=== PATIENT | female | born 1965 | race Caucasian/White ===

== ENCOUNTER 2018-04-25 09:49 | Observation (INO) | payer OTHER ==
[~2018-04-25] VITALS: Ht 165.1 cm; Wt 77.1 kg
[2018-04-25] MEDS ORDERED: MORPHINE SULFATE 2 MG/ML SYR IV STA (10:01)
[2018-04-25] MEDS ORDERED: KETOROLAC TROMETHAMINE 30 MG/ML VIAL IV STA (10:01)
[2018-04-25 10:14] LABS: BASOPHILS # (AUTO) 0.1 (0.0-0.1); BASOPHILS % 0.7 % (0.0-1.0); EOSINOPHILS # (AUTO) 0.3 (0.0-0.4); EOSINOPHILS % 2.5 % (0.0-6.0); HEMATOCRIT 45.9 % (34.2-44.1); HEMOGLOBIN 15.6 g/dL (12.0-16.0); LYMPHOCYTES # (AUTO) 2.3 (1.0-3.2); LYMPHOCYTES % 22.2 % (18.0-39.1); MEAN CORPUSCULAR HEMOGLOBIN 31.1 pg (28-32); MEAN CORPUSCULAR VOLUME 91.4 fL (81-99); MONOCYTES # (AUTO) 0.6 (0.2-0.8); MONOCYTES % 6.1 % (4.4-11.3); NEUTROPHILS % 68.1 % (38.7-80.0); PLATELET COUNT 240 x10e3/uL (140-360); RED BLOOD COUNT 5.02 x10e6/uL (3.6-5.1); RED CELL DISTRIBUTION WIDTH 13.4 % (11.7-14.4)
[2018-04-25] MEDS ORDERED: ONDANSETRON HCL 4 MG ORAL DISINTEGRATING TAB PO ONE (10:15)
[2018-04-25] MEDS ORDERED: SODIUM CHLORIDE 0.9% 1000ML 1,000 ML IV SCH (10:15)
[2018-04-25 10:35] LABS: ALANINE AMINOTRANSFERASE 13 IU/L (0-55); ALBUMIN/GLOBULIN RATIO 1.3 (0.8-2.0); ALKALINE PHOSPHATASE 85 IU/L (40-150); ANION GAP 11.9 mmol/L (8-16); BLOOD UREA NITROGEN 9 mg/dL (7-26); BUN/CREATININE RATIO 10 (6-25); CALCIUM 9.5 mg/dL (8.4-10.2); CARBON DIOXIDE 23 mmol/L (22-29); CHLORIDE 104 mmol/L (98-107); CREATININE, SERUM 0.94 mg/dL (0.57-1.11); EST GLOMERULAR FILTRATION RATE > 60 ML/MIN (60-); GLUCOSE 100 mg/dL (74-118); LIPASE 13 U/L (8-78); POTASSIUM 3.9 mmol/L (3.5-5.1); SODIUM 135 mmol/L (136-145)
[2018-04-25 10:35] LABS: BILIRUBIN,URINE NEGATIVE (NEGATIVE); CLARITY,URINE SL CLOUDY (CLEAR); COLOR,URINE YELLOW (YELLOW); KETONES,URINE NEGATIVE (NEGATIVE); LEUKOCYTE ESTERASE ,URINE 1+ (NEGATIVE); NITRITE,URINE NEGATIVE (NEGATIVE); PROTEIN,URINE DIPSTICK 1+ (NEGATIVE); URINE UROBILINOGEN 0.2 mg/dL (0.2 - 1)
[2018-04-25 10:49] LABS: BACTERIA,URINE MODERATE /HPF; EPITHELIAL CELLS,URINE FEW /LPF
--- NOTE | 2018-04-25 11:22 | Diagnostic Imaging Report ---
PROCEDURE: CT ABDOMEN AND PELVIS WITHOUT CONTRAST COMPARISON:None. INDICATIONS:Right flank pain TECHNIQUE: Stone protocol Volumetric CT abdomen and pelvis. No intravenous or enteric contrast. Multiplanar reformatted images. DLP: 452.39 FINDINGS: Clear lung bases. No pleural effusions. Normal heart size. Liver: Numerous low attenuation cystic nodules, the largest measuring 2.3 cm. Gallbladder: Normal Pancreas: Normal Spleen: Normal Adrenal glands: Normal Urinary bladder: Normal Uterus and adnexa: Hysterectomy Kidneys: Right: 0.7 x 0.4 cm stone at the ureterovesicular junction with accompanying moderate hydronephrosis. At least a right renal stones measuring between 2 mm and 3 mm in diameter. Left: Normal ureter. At least 11 stones measuring between 2 mm and 0.6 x 0.7 cm (image 58, series 3). Bowel: Normal caliber. Peritoneum: Normal Vasculature: Scattered atherosclerosis. Lymph nodes: Normal Skeleton: Intact. Soft tissues: Normal CONCLUSION: 1. 0.7 x 0.4 cm stone at the right ureterovesicular junction with resulting moderate right hydronephrosis. 2. Extensive bilateral nephrolithiasis measuring between 2 mm and 0.6 x 0.7 cm in diameter. 3. Numerous cystic lesions in the liver. These are incompletely characterized on this study. Liver protocol MRI or CT is recommended for further characterization. Dictated by: Nimesh Guadarrama M.D. on 04/25/2018 at 11:25 Electronically approved by: Nimesh Guadarrama M.D. on 04/25/2018 at 11:25
--- OUTSIDE RECORDS SUMMARY | 2018-04-25 11:57 | XMS REPORT ---
Author Author [facility] Address Unknown Phone Unavailable Care Team Providers Care Fruit Or Nut Picker Name Role Phone MASSIMO SAUNDERS Unavailable Unavailable Problems This patient has no known problems. Allergies, Adverse Reactions, Alerts This patient has no known allergies or adverse reactions. Medications This patient has no known medications. Results Test Description Test Time Test Comments Text Results Atomic Results Result Comments CT ABDOMEN/PELVIS WO [place] [address] Patient Name: SILVANA TEIXEIRA MR #: [id number] : 1965 Age/Sex: 52/F Req #: [id number] Adm Physician: Ordered by: MASSIMO SAUNDERS MD Report #: [id number] Location: ER Room/Bed: Procedure: 14 CT/CT ABDOMEN/PELVIS WO Exam Date: 04/25/18 Exam Time: 1050 REPORT STATUS: Signed PROCEDURE: CT ABDOMEN AND PELVIS WITHOUT CONTRAST COMPARISON: None. INDICATIONS: Right flank pain TECHNIQUE: Stone protocol Volumetric CT abdomen and pelvis. No intravenous or enteric contrast. Multiplanar reformatted images. DLP: 452.39 FINDINGS: Clear lung bases. No pleural effusions. Normal heart size. Liver: Numerous low attenuation cystic nodules, the largest measuring 2.3 cm. Gallbladder: Normal Pancreas: Normal Spleen: Normal Adrenal glands: Normal Urinary bladder: Normal Uterus and adnexa: Hysterectomy Kidneys: Right: 0.7 x 0.4 cm stone at the ureterovesicular junction with accompanying moderate hydronephrosis. At least a right renal stones measuring between 2 mm and 3 mm in diameter. Left: Normal ureter. At least 11 stones measuring between 2 mm and 0.6 x 0.7 cm (image 58, series 3). Bowel: Normal caliber. Peritoneum: Normal Vasculature: Scattered atherosclerosis. Lymph nodes: Normal Skeleton: Intact. Soft tissues: Normal CONCLUSION: 1. 0.7 x 0.4 cm stone at the right ureterovesicular junction with resulting moderate right hydronephrosis. 2. Extensive bilateral nephrolithiasis measuring between 2 mm and 0.6 x 0.7 cm in diameter. 3. Numerous cystic lesions in the liver. These are incompletely characterized on this study. Liver protocol MRI or CT is recommended for further characterization. Dictated by: Kathrine Guadarrama M.D. on 02/2018 at 11:25 Electronically approved by: Kathrine Guadarrama M.D. on 04/25/2018 at 11:25 Dictated By: KATHRINE GUADARRAMA MD 1125 Transcribed By: ELROY on 04/25/18 1125 COPY TO: MASSIMO SAUNDERS MD
[2018-04-25] MEDS ORDERED: ONDANSETRON HCL INJ 2 MG/ML VIAL IV PRN (12:00)
[2018-04-25] MEDS: SODIUM CHLORIDE 0.9% 1000ML 1,000 ML IV SCH ×2 (12:50→23:30)
[2018-04-25] MEDS: LEVOFLOXACIN 500MG/D5W 100ML 100 ML IV SCH (12:50)
[2018-04-25 13:18] VITALS: BP 128/75
[2018-04-25 13:26] VITALS: BP 128/75
[2018-04-25] MEDS ORDERED: SYNTHROID112 MCG PO (13:39)
[2018-04-25] MEDS: MORPHINE SULFATE 2 MG/ML SYR IV PRN ×2 (14:03→20:22)
[2018-04-25 16:50] VITALS: BP 109/58
[2018-04-25 20:00] VITALS: BP 135/81
[2018-04-26] VITALS (9 sets, daily range): BP systolic 108–136; BP diastolic 59–82
--- NOTE | 2018-04-26 08:10 | History and Physical ---
This 52-year-old female comes in with abdominal pain, and kidney stone was diagnosed. HISTORY OF PRESENT ILLNESS: Mr. Braun has a history of hypothyroidism, history of back pain and osteoporosis. She was in her usual state of health until she started to have left-sided flank pain, abdominal pain, and also tenderness in the epigastric area. The patient came into the emergency room and was found to have a kidney stone on CT scan and was admitted for pain and a stone in the UV junction. PAST MEDICAL HISTORY 1. History of hypothyroidism. 2. History of back pain. 3. History of vitamin D deficiency. 4. History of osteopenia. SURGICAL HISTORY 1. History of 2 C-sections. 2. Hysterectomy and oophorectomy. 3. Pelvic sling surgery. MEDICATIONS: She takes at home levothyroxine 112 mcg. She sees an adjunct instructor for that. SOCIAL HISTORY: History of smoking 1 pack per day. History of drinking multiple Cokes and also tea. History of no EtOH and no IV drug abuse. REVIEW OF SYSTEMS: Negative for chest pain. Positive for back pain. No nausea, vomiting, or diarrhea. No constipation. No rectal bleeding or hematochezia. Positive for back pain and also epigastric pain. No diplopia. No blurry vision. PHYSICAL EXAMINATION VITALS: Temperature is 96.2, pulse 71, blood pressure 135/81. Pulse oximetry is 95%. HEENT: Normocephalic and atraumatic. The pupils are reacting to light and accommodation. CV: S1 and S2 normal, regular rate and rhythm. ABDOMEN: Tender in the epigastric and left flank pain. EXTREMITIES: No clubbing. No cyanosis. No edema. LABORATORY VALUES: White count 10.22, hemoglobin 15.6, hematocrit 45.9. Chemistries: Sodium 135, potassium 3.9. Urine was positive for RBCs and WBCs, and also specific gravity 1.030. Moderate amount of bacteria. CT scan shows 0.7 x 0.4 stone at right UV junction. Extensive bilateral nephrolithiasis measuring 2 mm, 0.6 and 0.7. Numerous cystic lesions in the liver. ASSESSMENT AND PLAN: Urinary tract infection. We will culture the urine. Continue on Levaquin. Consult with Dr. Pardo has been done. For the liver, the patient is recommended to go for MRI on an outpatient basis with liver protocol. This was addressed to the patient and emphasized to the patient in detail. Further recommendations depend on clinical course and also depending on urine microbiology. I will continue to monitor the patient and continue with medications. Job#: [id number]
[2018-04-26] MEDS: SODIUM CHLORIDE 0.9% 1000ML 1,000 ML IV SCH ×2 (08:43→19:01)
[2018-04-26] MEDS: LEVOFLOXACIN 500MG/D5W 100ML 100 ML IV SCH (08:43)
[2018-04-26] MEDS: LEVOTHYROXINE SODIUM 112 MCG TAB PO SCH (08:43)
--- NOTE | 2018-04-26 09:00 | Consultation ---
DATE OF CONSULTATION: April 26, 2018 UROLOGY CONSULTATION REASON FOR CONSULTATION: Obstructing ureterolithiasis. HISTORY OF PRESENT ILLNESS: Ember Braun is a 52-year-old woman with recurrent urinary stones. The patient has passed 3 stones in the past. She has never seen a urologist. The patient reports both stress and urge-type urinary incontinence. She has had a "bladder sling" placed by a content analyst in [place], [place]. The patient has had recurrent urinary tract infections. She has never seen any hematuria. She denies any current dysuria. The patient had severe right-sided flank pain as well as nausea without any vomiting. She reported to the emergency room and was evaluated. I instructed the emergency room to order a urine culture as well as a urinalysis. She was admitted and placed on an antibiotic. She has not had any fever. Her pain has been controlled, but she has not passed her stone yet. Her urine has been strained by the nurses. PAST MEDICAL AND SURGICAL HISTORY 1. 2, para 2 by section times 2. 2. Status post total abdominal hysterectomy. 3. Status post oophorectomy. 4. Status post exploration for scar tissue by a content analyst. 5. Status post urethral sling. 6. [place] thyroiditis. CURRENT MEDICATIONS: Please refer to the MAR. ALLERGIES: BUPROPION, HYDROCODONE AND NITROFURANTOIN. SOCIAL HISTORY: The patient smokes. She denies ethanol or drug use. The patient works in an office. She has supportive family at the bedside. FAMILY HISTORY: Significant for kidney stones as well as bladder cancer in the patient's father. Otherwise, noncontributory to the active urological problems. REVIEW OF SYSTEMS: As discussed above in the history of present illness and past medical history, otherwise negative for all systems. PHYSICAL EXAMINATION GENERAL: A healthy-appearing, 52-year-old woman lying in bed in no apparent distress. VITAL SIGNS: She is currently afebrile, and the vital signs are currently stable. ABDOMEN: Soft, nondistended and nontender without costovertebral angle tenderness. Kidneys are not palpable without hepatosplenomegaly. No obvious evidence of hernia at the present time. LABORATORY STUDIES: White blood cell count is 10,220, hemoglobin 15.6, platelets 240,000. The patient's sodium is slightly low at 135. Her creatinine is normal at 0.94. Urinalysis is significant for 11-20 RBCs, 6-10 WBCs, a few epithelial cells and moderate bacteria. No urine culture is pending at the present time. CT scan of the abdomen and pelvis was performed and revealed at least 11 stones in the left kidney measuring up to 0.7 cm. In the right kidney, there are 2 small stones, 2 and 3 mm, but there is a 0.7 x 0.4 cm stone at the right ureterovesical junction with hydroureteronephrosis. A 3rd dimension was not measured on that study. There are numerous cystic lesions that were noted in the liver, and I defer that to the admitting physician. ASSESSMENT 1. Right renal colic. 2. Right ureterolithiasis. 3. Bilateral nephrolithiasis. 4. Mixed-type urinary incontinence. 5. Urinary tract infections. 6. Nausea. 7. Family history of breast cancer. 8. Family history of kidney stones. 9. Smoker. 10. Mild hyponatremia. 11. Right hydroureteronephrosis due to stone. PLAN 1. I will order a KUB. 2. Stone passage trial. 3. If she fails to the pass the stone, we will go to the operating room for a ureteroscopy and laser. Thank you very much for involving us in the care of your patient. We will be happy to follow her along with you, as well as an outpatient. Job#: [id number]
--- NOTE | 2018-04-26 11:57 | Diagnostic Imaging Report ---
PROCEDURE:X-RAY ABDOMEN - KUB COMPARISON:[facility], CT, CT ABDOMEN/PELVIS WO, 04/25/2018, 11:03. INDICATIONS:KIDNEY STONES FINDINGS: There is a non-obstructed bowel-gas pattern. Multiple 1-2 mm calcific densities project in the upper, mid, and lower right renal shadow, some of which are grouped, consistent with nonobstructing calculi. A 0.5-0.6 cm nonobstructing calculus projects in the superior pole of the right renal shadow. Grouped 1-2 mm calcific densities project in the superior to mid left renal shadow. 0.6 cm oval-shaped calcific density projects in the medial aspect of the right pelvis. Pelvic phleboliths. No acute bony abnormalities. CONCLUSION: 1. Multiple 1-2 mm nonobstructing calculi, some of which are grouped and a 0.5-0.6 cm nonobstructing calculus in the right kidney, corresponding to the findings on CT. 2. Grouped 1-2 mm nonobstructing calculi in the superior to mid left kidney. 3. 0.6 cm oval-shaped calcific density projecting in the medial aspect of the right pelvis may correspond to the previously visualized obstructing distal right ureteral calculus on CT. Kirk Stubbs M.D. Dictated by: Kirk Stubbs M.D. on 04/26/2018 at 12:00 Electronically approved by: Kirk Stubbs M.D. on 04/26/2018 at 12:00
[2018-04-27] VITALS (8 sets, daily range): BP systolic 104–125; BP diastolic 56–74
[2018-04-27] MEDS: SODIUM CHLORIDE 0.9% 1000ML 1,000 ML IV SCH ×2 (04:19→13:58)
[2018-04-27] MEDS: LEVOTHYROXINE SODIUM 112 MCG TAB PO SCH (06:04)
[2018-04-27] MEDS ORDERED: BELLADONNA/OPIUM 30 MG SUPP RC ONE (06:37)
[2018-04-27] MEDS ORDERED: IOPAMIDOL 610MG/1ML 300 MG/ML VIAL IV ONE (06:37)
[2018-04-27] MEDS: LEVOFLOXACIN 500MG/D5W 100ML 100 ML IV SCH (09:00)
[2018-04-27] MEDS ORDERED: LIDOCAINE HCL 2% LOCAL INJ 5 ML SDV VIAL INJ ONE (18:11)
[2018-04-27] MEDS ORDERED: PROPOFOL IV EMULSION 10 MG/ML 50 ML VIAL ONE (18:11)
[2018-04-27] MEDS ORDERED: DEXAMETHASONE SOD PHOS INJ 4 MG/ML VIAL ONE (18:16)
[2018-04-27] MEDS ORDERED: SEVOFLURANE INHAL SOLN 250 ML PEN BTL ONE (18:16)
[2018-04-27] MEDS ORDERED: ONDANSETRON HCL INJ 2 MG/ML VIAL ONE (18:16)
[2018-04-27] MEDS ORDERED: FENTANYL CITRATE/PF 100MCG/2 ML INJ ONE (18:31)
[2018-04-27] MEDS ORDERED: MIDAZOLAM HCL 2 MG/2 ML VIAL ONE (18:31)
[2018-04-27] MEDS: MORPHINE SULFATE 2 MG/ML SYR IV PRN (21:12)
[2018-04-28] VITALS: BP 109/58
[2018-04-28] MEDS: SODIUM CHLORIDE 0.9% 1000ML 1,000 ML IV SCH (03:27)
[2018-04-28 04:00] VITALS: BP 122/63
[2018-04-28 05:53] LABS: BASOPHILS % 0.3 % (0.0-1.0); EOSINOPHILS % 0.6 % (0.0-6.0); HEMATOCRIT 36.7 % (34.2-44.1); HEMOGLOBIN 12.6 g/dL (12.0-16.0); LYMPHOCYTES # (AUTO) 2.3 (1.0-3.2); LYMPHOCYTES % 23.9 % (18.0-39.1); MEAN CORPUSCULAR HEMOGLOBIN 31.8 pg (28-32); MEAN CORPUSCULAR HGB CONC 34.3 g/dL (31-35); MEAN CORPUSCULAR VOLUME 92.7 fL (81-99); NEUTROPHILS # (AUTO) 6.5 (2.1-6.9); NEUTROPHILS % 66.7 % (38.7-80.0); PLATELET COUNT 179 x10e3/uL (140-360); RED BLOOD COUNT 3.96 x10e6/uL (3.6-5.1); RED CELL DISTRIBUTION WIDTH 13.6 % (11.7-14.4)
[2018-04-28 05:54] LABS: EOSINOPHILS # (AUTO) 0.1 (0.0-0.4); MONOCYTES # (AUTO) 0.8 (0.2-0.8)
[2018-04-28] MEDS: LEVOTHYROXINE SODIUM 112 MCG TAB PO SCH (06:15)
[2018-04-28 06:34] LABS: POTASSIUM 3.9 mmol/L (3.5-5.1); SODIUM 140 mmol/L (136-145)
[2018-04-28 06:35] LABS: ANION GAP 10.9 mmol/L (8-16); BLOOD UREA NITROGEN 8 mg/dL (7-26); BUN/CREATININE RATIO 10 (6-25); CALCIUM 8.6 mg/dL (8.4-10.2); CARBON DIOXIDE 23 mmol/L (22-29); CHLORIDE 110 mmol/L (98-107); EST GLOMERULAR FILTRATION RATE > 60 ML/MIN (60-); GLUCOSE 97 mg/dL (74-118)
[2018-04-28 07:33] VITALS: BP 121/79
[2018-04-28 08:00] VITALS: BP 121/79
[2018-04-28] MEDS ORDERED: ULTRAM 50MG50 MG PO (08:01)
[2018-04-28] MEDS ORDERED: DETROL LA4 MG PO (08:02)
[2018-04-28] MEDS ORDERED: LEVAQUIN500 MG PO (08:03)
--- NOTE | 2018-05-15 15:44 | Discharge Summary ---
Patient came with urethral stone. A consult with Dr. Jose Pardo was done. Patient was scheduled for stent. IV fluids were started. Patient has hemoconcentration secondary to COPD. Smoking cessation was advised. Albuterol and Atrovent treatments were given. Patient was also on Levaquin at the time. Patient was given also Zofran as needed and morphine sulfate for pain control. KUB was done, which showed a stone. The patient was feeling better. Stent was done and patient colic was better. Patient was sent home on p.o. antibiotics and also pain medication by Dr. Jose Pardo. FINAL DIAGNOSES: 1. Urinary tract infection. 2. Nephrolithiasis, status post urinary stent. 3. Renal colic. 4. History of chronic obstructive pulmonary disease. 5. History of smoking. The patient is to be followed up with Dr. Pardo in about a week's time. For further information, look in the chart and for medicines on discharge, look in the medical reconciliation sheet. PROCEDURE DONE: Bilateral ureteroscopy and also stent. MAGGIE CHISHOLM MD Job#: [id number]
--- NOTE | 2018-07-04 03:07 | Operative Report ---
DATE OF PROCEDURE: PREOPERATIVE DIAGNOSES 1. Right ureterolithiasis. 2. Left ureterolithiasis. 3. Urinary tract infections . 4. Hydronephrosis. POSTOPERATIVE DIAGNOSES 1. Right ureterolithiasis. 2. Left ureterolithiasis. 3. Urinary tract infections . 4. Hydronephrosis. 5. Grade-1 cystocele. 6. Grade-1 rectocele. 7. Atrophic (senile) vaginitis. OPERATIONS PERFORMED 1. Cystourethroscopy with bilateral ureteral catheterization and retrograde ureterography (separate procedure performed to evaluate the upper tracts in light of the urinary tract infection, hydronephrosis). 2. Interpretation of retrograde ureteropyelography. 3. Supervision of fluoroscopy. No radiologist present. 4. Bilateral ureteroscopy with holmium laser lithotripsy and insertion of stents (separate procedure performed for the bilateral ureterolithiasis). 5. Radiological services for supervision and interpretation of ureteroscopy. ANESTHESIA: General. COMPLICATIONS: None. CLINICAL SUMMARY: Please refer to consultation from earlier this hospitalization. Patient is aware of the risks of bleeding, infection, injury to adjacent structures, and the definite need for additional procedures. She understood all these risks and elected to proceed. OPERATIVE PROCEDURE IN DETAIL: Informed consent was verified. Ember Crume was properly identified, taken to operating room, placed on the cystoscopy table in supine position. Anesthesia was uneventfully begun. The patient was then carefully and gently repositioned in the dorsal lithotomy position with all pressure points well padded. Her genitalia were prepared and draped in the usual sterile fashion. A 22.5-[place] cystoscope sheath with obturator in place was atraumatically inserted in patient's urethra and the bladder was drained. Panendoscopy of urinary bladder revealed no suspicious mucosal lesion, no tumors, no stones, no diverticula. Normally positioned and configured ureteral orifices were identified. Ureteral catheter was used to cannulate each ureter and retrograde ureteropyelography was performed. A guidewire was then placed into the left ureter and guided to level of patient's kidney. Semirigid ureteroscope was then placed alongside the guidewire until we atraumatically reached the patient's ureteral stone that was obstructing. Holmium laser lithotripsy was performed in order to pulverize the stone into multiple smaller fragments. A basket was then utilized to extract the largest of stones atraumatically. With cystoscopic fluoroscopic guidance, an indwelling ureteral stent was then placed. It was coiled in patient's kidney, as well as patient's bladder. The retaining suture was cut short. An identical procedure with identical results was performed on the contralateral side. Interpretation of retrograde ureterography: Contrast was instilled in a retrograde fashion bilaterally. There was bilateral hydroureteronephrosis. Bilateral ureteral stones were identified as filling defects. At the end of the procedure, both stents were in well position, coiled in the patient's kidney, as well as patient's bladder at the end of the case. The patient's bladder was then drained. Cystoscope was withdrawn. Pelvic examination under anesthesia revealed a grade-1 cystocele with grade-1 rectocele. There was atrophic (senile) vaginitis. No abnormal palpable pelvic masses could be appreciated. There were no suspicious mucosal lesions. The patient was then uneventfully reversed from anesthesia and taken to recovery room in stable condition. There was no complication to this procedure. She tolerated the procedure well. Plans will be to ensure the patient does well overnight and following that, she hopefully will be discharged postoperative day 1 with followup as an outpatient for her next stone surgery, which will involve bilateral ureteroscopy, as well as stent removal. Job#: [id number] CQ
== END 2018-04-28 08:45 | disposition home or self-care (01) ==
LOC: ER 09:49 → ERHOLD 11:54 → MED/SURG3 12:54
PROVIDERS: ADMIT Family Medicine; ATTEND Family Medicine
DX: N13.6 Pyonephrosis (principal); N20.1 Calculus of ureter; E03.9 Hypothyroidism, unspecified; Z87.891 Personal history of nicotine dependence; E55.9 Vitamin D deficiency, unspecified; Z87.442 Personal history of urinary calculi; N39.46 Mixed incontinence; Z80.3 Family history of malignant neoplasm of breast; Z84.1 Family history of disorders of kidney and ureter; E87.1 Hypo-osmolality and hyponatremia
CPT/HCPCS: 36415 ×2; 52356; 74018; 74176; 74420; 80048; 80053; 81001; 83690; 83970; 84550; 85025 ×2; 87086; 88300; 93005; 96361 ×3; 99284; C2617; G0378 ×4; J1100; J1885; J1956 ×3; J2001; J2250; J2270 ×2; J2405 ×2; J7030 ×4; Q9967

== ENCOUNTER 2018-05-17 16:38 | Observation (INO) | payer OTHER ==
[~2018-05-17] VITALS: Ht 165.1 cm; Wt 74.4 kg
[~2018-05-17 16:38] MED LIST: DETROL LA4 MG PO; LEVAQUIN500 MG PO; SYNTHROID112 MCG PO; ULTRAM 50MG50 MG PO
[2018-05-17 17:02] LABS: BASOPHILS # (AUTO) 0.1 (0.0-0.1); BASOPHILS % 0.5 % (0.0-1.0); EOSINOPHILS # (AUTO) 0.2 (0.0-0.4); EOSINOPHILS % 2.5 % (0.0-6.0); HEMATOCRIT 47.6 % (34.2-44.1); HEMOGLOBIN 16.5 g/dL (12.0-16.0); LYMPHOCYTES # (AUTO) 3.3 (1.0-3.2); LYMPHOCYTES % 34.1 % (18.0-39.1); MEAN CORPUSCULAR HEMOGLOBIN 31.5 pg (28-32); MEAN CORPUSCULAR HGB CONC 34.7 g/dL (31-35); MONOCYTES # (AUTO) 0.8 (0.2-0.8); MONOCYTES % 7.8 % (4.4-11.3); NEUTROPHILS # (AUTO) 5.3 (2.1-6.9); NEUTROPHILS % 54.9 % (38.7-80.0); PLATELET COUNT 292 x10e3/uL (140-360); RED BLOOD COUNT 5.23 x10e6/uL (3.6-5.1); RED CELL DISTRIBUTION WIDTH 13.8 % (11.7-14.4)
[2018-05-17 17:27] LABS: BLOOD UREA NITROGEN 8 mg/dL (7-26); BUN/CREATININE RATIO 9 (6-25); CALCIUM 9.8 mg/dL (8.4-10.2); CARBON DIOXIDE 22 mmol/L (22-29); CHLORIDE 105 mmol/L (98-107); CREATININE, SERUM 0.85 mg/dL (0.57-1.11); EST GLOMERULAR FILTRATION RATE > 60 ML/MIN (60-); GLUCOSE 87 mg/dL (74-118); SODIUM 138 mmol/L (136-145)
[2018-05-17 17:30] LABS: BILIRUBIN,URINE NEGATIVE (NEGATIVE); CLARITY,URINE SL CLOUDY (CLEAR); COLOR,URINE YELLOW (YELLOW); KETONES,URINE NEGATIVE (NEGATIVE); LEUKOCYTE ESTERASE ,URINE TRACE (NEGATIVE); NITRITE,URINE NEGATIVE (NEGATIVE); PROTEIN,URINE DIPSTICK NEGATIVE (NEGATIVE); URINE UROBILINOGEN 0.2 mg/dL (0.2 - 1)
[2018-05-17] MEDS ORDERED: MORPHINE SULFATE 2 MG/ML SYR IV STA (17:31)
[2018-05-17] MEDS ORDERED: ONDANSETRON HCL INJ 2 MG/ML VIAL IV STA (17:31)
[2018-05-17 17:43] LABS: BACTERIA,URINE MODERATE /HPF; EPITHELIAL CELLS,URINE FEW /LPF; RBC,URINE 0-5 /HPF (0-5)
[2018-05-17] MEDS ORDERED: SODIUM CHLORIDE 0.9% 1000ML 1,000 ML IV SCH (17:45)
--- NOTE | 2018-05-17 17:58 | Diagnostic Imaging Report ---
Exam: Abdominal film Clinical History: Left flank pain Comparison: KUB 04/26/2018 DISCUSSION: Frontal view of the abdomen shows a nonobstructive bowel gas pattern with mild amount of retained stool.There are no dilated, air-filled loops of bowel. Bilateral internal ureteral stents are again identified. No interval change in the 6-7, 3-4 mm and punctate nonobstructing calculi projecting over the left renal shadow. No interval change in the ill-defined 2 mm nonobstructing calculi projecting over the right renal shadow. No radiopaque densities project over the expected course of the ureters. Pelvic phleboliths. No acute bone abnormality. IMPRESSION: 1. Bilateral internal ureteral stents in place. 2. No interval change in bilateral nonobstructing calculi The staff physician below has personally reviewed this exam on the date of dictation. Signed by: Dr. Kirk Stubbs M.D. on 05/17/2018 5:54 PM
[2018-05-17] MEDS: SODIUM CHLORIDE 0.9% 1000ML 1,000 ML IV SCH (18:14)
[2018-05-17] MEDS ORDERED: ONDANSETRON HCL INJ 2 MG/ML VIAL IV PRN (18:15)
[2018-05-17] MEDS ORDERED: MORPHINE SULFATE 2 MG/ML SYR IV PRN (18:15)
[2018-05-17 19:21] LABS: BILIRUBIN,URINE NEGATIVE (NEGATIVE); CLARITY,URINE SL CLOUDY (CLEAR); COLOR,URINE YELLOW (YELLOW); KETONES,URINE NEGATIVE (NEGATIVE); LEUKOCYTE ESTERASE ,URINE TRACE (NEGATIVE); NITRITE,URINE NEGATIVE (NEGATIVE); PROTEIN,URINE DIPSTICK NEGATIVE (NEGATIVE); URINE UROBILINOGEN 0.2 mg/dL (0.2 - 1)
[2018-05-17 19:29] LABS: BACTERIA,URINE MODERATE /HPF; RBC,URINE 0-5 /HPF (0-5); WBC,URINE (MAN) 0-5 /HPF (0-5)
[2018-05-17 20:00] VITALS: BP 121/75
[2018-05-17] MEDS: CEFTRIAXONE SOD 1 GM VIAL IV SCH (20:27)
[2018-05-18] VITALS (8 sets, daily range): BP systolic 107–116; BP diastolic 61–83
[2018-05-18] MEDS: SODIUM CHLORIDE 0.9% 1000ML 1,000 ML IV SCH ×3 (01:33→18:39)
[2018-05-18] MEDS: CEFTRIAXONE SOD 1 GM VIAL IV SCH (06:48)
--- NOTE | 2018-05-18 07:43 | History and Physical ---
This 52-year-old female comes in with abdominal pain. HISTORY OF PRESENT ILLNESS: Ms. Ember Braun was recently admitted to the hospital for nephrolithiasis, status post stents. She was in her usual state of health until the day prior to admission when the patient started with sharp pain, which was localized to the left flank. The patient experienced the pain at 6/10 to 8/10 in intensity. She came to the emergency room and was admitted for nephrolithiasis. PAST MEDICAL HISTORY 1. History of polycystic kidney disease. 2. History of thyroid disease. 3. History of COPD. 4. History of urinary calculi in the past. SURGICAL HISTORY 1. Hysterectomy and oophorectomy. 2. Bilateral ureteral stents 3 weeks ago. MEDICATIONS 1. She was taking Levaquin prior to this. 2. Levothyroxine 112 mcg. 3. Detrol 4 mg. 4. Tramadol 50 mg q.4 h. for pain. SOCIAL HISTORY: Current smoker. Smokes about a pack per day. Lives with spouse. REVIEW OF SYSTEMS: Negative for chest pain or shortness of breath. No nausea, vomiting, diarrhea. No constipation. No rectal bleeding. Positive for abdominal pain. Positive for flank pain. No diplopia. No blurry vision. No chest pain. PHYSICAL EXAMINATION GENERAL: The patient is alert and oriented times 3. The pain is well controlled at this time. The patient is getting morphine 2 mg/mL and Zofran. She is also on Rocephin 1 g. VITAL SIGNS: Temperature is 95.7, pulse 68, respirations 20, blood pressure 116/83, pulse ox 95%. HEENT: Normocephalic and atraumatic. The pupils are reacting to light and accommodation. CV: S1 and S2 normal, regular rate and rhythm. ABDOMEN: Nontender. Left flank pain, possible costochondral tenderness. EXTREMITIES: No clubbing, no cyanosis, no edema. LABORATORY VALUES: Sodium 138, potassium 4.0, BUN 18, creatinine 0.85. Hematology: White count 9.6, hemoglobin 16.5, hematocrit 47.6. Urine: Cloudy. Moderate amount of bacteria. Cultures have been sent. ASSESSMENT AND PLAN: Nephrolithiasis. Probable urinary tract infection. The patient is on Rocephin. To be taken to the OR by Dr. Jose Pardo. We will continue hydrating the patient. Also, O2 by nasal cannula. Further recommendations per clinical course. We will continue to monitor the patient and follow the patient along with Dr. Pardo and follow the cultures. Job#: [id number] GHAZALA
[2018-05-18] MEDS ORDERED: MEROPENEM 1GM 100 ML IV SCH (09:45)
[2018-05-18] MEDS: MEROPENEM 1 GM VIAL IV SCH (10:18)
[2018-05-18] MEDS: FLUCONAZOLE 100 MG TAB PO SCH (10:18)
[2018-05-18] MEDS: GENTAMICIN 80MG/NS 100 ML 100 ML IV SCH (11:48)
[2018-05-19 00:10] VITALS: BP 110/64
[2018-05-19] MEDS: MEROPENEM 1 GM VIAL IV SCH ×2 (00:52→09:28)
[2018-05-19] MEDS: GENTAMICIN 80MG/NS 100 ML 100 ML IV SCH ×3 (00:52→14:56)
[2018-05-19 00:53] VITALS: BP 110/61
[2018-05-19] MEDS: SODIUM CHLORIDE 0.9% 1000ML 1,000 ML IV SCH ×2 (02:06→09:28)
[2018-05-19 05:10] VITALS: BP 126/70
[2018-05-19 05:23] LABS: BASOPHILS # (AUTO) 0.1 (0.0-0.1); BASOPHILS % 0.7 % (0.0-1.0); EOSINOPHILS # (AUTO) 0.1 (0.0-0.4); EOSINOPHILS % 2.1 % (0.0-6.0); HEMATOCRIT 43.1 % (34.2-44.1); HEMOGLOBIN 14.2 g/dL (12.0-16.0); LYMPHOCYTES # (AUTO) 2.5 (1.0-3.2); MEAN CORPUSCULAR HEMOGLOBIN 31.7 pg (28-32); MEAN CORPUSCULAR HGB CONC 32.9 g/dL (31-35); MEAN CORPUSCULAR VOLUME 96.2 fL (81-99); MONOCYTES # (AUTO) 0.5 (0.2-0.8); MONOCYTES % 7.5 % (4.4-11.3); NEUTROPHILS # (AUTO) 3.6 (2.1-6.9); NEUTROPHILS % 52.4 % (38.7-80.0); PLATELET COUNT 233 x10e3/uL (140-360); RED BLOOD COUNT 4.48 x10e6/uL (3.6-5.1); RED CELL DISTRIBUTION WIDTH 14.2 % (11.7-14.4)
[2018-05-19 05:41] LABS: ANION GAP 10.2 mmol/L (8-16); BLOOD UREA NITROGEN 5 mg/dL (7-26); BUN/CREATININE RATIO 6 (6-25); CALCIUM 8.7 mg/dL (8.4-10.2); CARBON DIOXIDE 24 mmol/L (22-29); CHLORIDE 114 mmol/L (98-107); CREATININE, SERUM 0.81 mg/dL (0.57-1.11); EST GLOMERULAR FILTRATION RATE > 60 ML/MIN (60-); GLUCOSE 92 mg/dL (74-118); POTASSIUM 4.2 mmol/L (3.5-5.1); SODIUM 144 mmol/L (136-145)
[2018-05-19] MEDS ORDERED: IOPAMIDOL 610MG/1ML 300 MG/ML VIAL IV ONE (05:45)
[2018-05-19] MEDS ORDERED: BELLADONNA/OPIUM 30 MG SUPP RC ONE (05:45)
[2018-05-19 08:21] VITALS: BP 112/59
[2018-05-19] MEDS: FLUCONAZOLE 100 MG TAB PO SCH (09:28)
[2018-05-19] MEDS: PHENAZOPYRIDINE HCL 100 MG TAB PO SCH ×2 (09:28→14:55)
[2018-05-19 11:16] VITALS: BP 121/64
[2018-05-19 15:13] VITALS: BP 104/64
[2018-05-19] MEDS ORDERED: SEVOFLURANE INHAL SOLN 250 ML PEN BTL ONE (15:22)
[2018-05-19] MEDS ORDERED: LIDOCAINE HCL 2% LOCAL INJ 5 ML SDV VIAL INJ ONE (15:22)
[2018-05-19] MEDS ORDERED: ONDANSETRON HCL INJ 2 MG/ML VIAL ONE (15:22)
[2018-05-19] MEDS ORDERED: PROPOFOL IV EMULSION 10 MG/ML 20 ML VIAL ONE (15:22)
[2018-05-19] MEDS ORDERED: DEXAMETHASONE SOD PHOS INJ 4 MG/ML VIAL ONE (15:22)
[2018-05-19] MEDS ORDERED: KETOROLAC TROMETHAMINE 30 MG/ML VIAL ONE (15:22)
[2018-05-19] MEDS ORDERED: ROCURONIUM BROMIDE 10 MG/ML 5ML VIAL ONE (15:22)
[2018-05-19] MEDS ORDERED: FENTANYL CITRATE/PF 100MCG/2 ML INJ ONE (15:46)
[2018-05-19] MEDS ORDERED: MIDAZOLAM HCL 2 MG/2 ML VIAL ONE (15:46)
--- NOTE | 2018-06-21 20:38 | Discharge Summary ---
This patient came in with abdominal pain. The patient had stents put in by Dr. Pardo and a cystoscopy was done and bilateral stents were removed, and the patient felt better and the patient was taking Levaquin for antibiotics and stents were removed. The patient was feeling better and the patient was discharged home. FINAL DIAGNOSES 1. Nephrolithiasis. 2. Bilateral renal stents. PROCEDURE: Cystoscopy with bilateral stent removal by Dr. Jose Pardo. The patient is discharged home on Levaquin. Further recommendations as an outpatient. The patient will be followed up by urology and primary care physician at [facility]. The patient also has history of smoking and smoking cessation was advised and also history of hypothyroidism for which she was continued on levothyroxine for. MAGGIE CHISHOLM MD Job#: [id number]
--- NOTE | 2018-07-21 01:08 | Operative Report ---
DATE OF PROCEDURE: May 19, 2018 PREOPERATIVE DIAGNOSES 1. Right nephrolithiasis. 2. Left nephrolithiasis. 3. Foreign bodies (bilateral indwelling ureteral stents). POSTOPERATIVE DIAGNOSES 1. Right nephrolithiasis. 2. Left nephrolithiasis. 3. Foreign bodies (bilateral indwelling ureteral stents). 4. Candidal vaginitis. 5. Mild cystocele. OPERATIONS PERFORMED 1. Cystourethroscopy with complicated removal of bilateral indwelling ureteral stents (separate procedure performed for diagnosis of stents done with a separate scope). 2. Bilateral ureteroscopy with Holmium laser lithotripsy and extraction of stones (separate procedure performed for diagnosis of stone done with separate scope). 3. Radiological services for supervision of interpretation of ureteroscopy. 4. Interpretation of retrograde ureteropyelography. 5. Supervision of fluoroscopy. No radiologist present. 6. Pelvic examination under anesthesia. ANESTHESIA: General. COMPLICATIONS: None. CLINICAL SUMMARY: Please refer to the chart. Ember Braun was admitted by the emergency room due to pain from the bilateral stents. She was brought to operating room to remove her stent and evaluate and manage any residual stones. She is aware of the risks of bleeding, infection, injury to adjacent structures, need for additional procedures, and elected to proceed. OPERATIVE PROCEDURE IN DETAIL: Informed consent was verified. Ember Braun was properly identified, taken to the operating room, placed on the cystoscopy table in supine position. Anesthesia was uneventfully begun. The patient was then carefully and gently repositioned in the dorsal lithotomy position with all pressure points well padded. Her genitalia were prepared and draped in usual sterile fashion. A 22.5-Portuguese cystoscope sheath with the obturator in place was atraumatically inserted into patient's urethra and the bladder was drained. Panendoscopy of the urinary bladder revealed no suspicious gross lesions, no tumors, no stones, and no diverticula. The stents were emerging from both ureteral orifices and were looped together. A guidewire was then placed into the right ureter and guided below the patient's kidney. The right stent was coiled, pulled out through the meatus. It was re-grasped and discarded. Semirigid ureteroscope was then placed alongside the guidewire and guided into the distal ureter. No stone was identified. A secondary guidewire was left in place. The flexible ureteroscope was then brought over the guidewire and guided to level of patient's kidney. We identified the stones. Holmium laser lithotripsy was then performed. The stone was pulverized in smaller pieces. We then utilized a Nitinol basket to extract stone fragments atraumatically. Careful panendoscopy of the intrarenal collecting system at the end of the procedures on it revealed only fine sand remaining, which should be passable. No significantly sized stone was identified. An identical procedure and maneuver was performed on left-hand side with identical results. Stones were as well, fragments were removed. No significantly sized stones remained. Interpretation of retrograde ureteropyelography: Contrast was instilled in retrograde fashion via the ureteroscope. There was chronic fullness bilaterally. There was chronic bilateral hydroureteronephrosis, which we attributed to accept the stent, but nevertheless at the end of the case, there was unobstructed drainage draining fluoroscopically and at the end of the case, I could not appreciate any stone on radiographic studies. The patient's bladder was drained. The cystoscope was withdrawn. Pelvic examination under anesthesia revealed candidal vaginitis with a whitish discharge and a mild cystocele. No abnormal palpable pelvic masses could be appreciated. There were no obvious mucosal lesions. The patient was then uneventfully reversed from anesthesia and taken to recovery room in stable condition. There were no complications to the procedure. She tolerated the procedure well. Explicit postoperative instructions were given and ongoing urological followup is a must. Job#: [id number] CQ
== END 2018-05-19 16:35 | disposition home or self-care (01) ==
LOC: ER 16:38 → ERHOLD 18:17 → IMCU 19:44
PROVIDERS: ADMIT Family Medicine; ATTEND Family Medicine
DX: N20.0 Calculus of kidney (principal); Z87.442 Personal history of urinary calculi; J44.9 Chronic obstructive pulmonary disease, unspecified; Q61.3 Polycystic kidney, unspecified; N39.0 Urinary tract infection, site not specified; B37.3 Candidiasis of vulva and vagina; Z96.0 Presence of urogenital implants; N81.10 Cystocele, unspecified
CPT/HCPCS: 36415 ×2; 52353; 74018; 74420; 80048 ×2; 81001; 85025 ×2; 87086; 88300; 99284; G0378 ×3; J0696 ×2; J1100; J1580 ×2; J1885; J2001; J2185 ×2; J2250; J2270; J2405 ×2; J7030 ×3; Q9967

== ENCOUNTER → 2019-01-17 | Outpatient (CLI) | payer BC ==
--- NOTE | 2019-01-17 17:07 | Diagnostic Imaging Report ---
EXAMINATION: CT of the abdomen and pelvis without contrast. TECHNIQUE: Spiral CT images of the abdomen and pelvis were performed from the lung bases to the lesser trochanters. No intravenous contrast was given per renal stone protocol. Coronal and sagittal reformatted images were obtained. COMPARISON: Retrograde hilar gram 05/19/2018 CLINICAL HISTORY:Renal stones DISCUSSION: ABSENCE OF INTRAVENOUS CONTRAST DECREASES SENSITIVITY FOR DETECTION OF FOCAL LESIONS AND VASCULAR PATHOLOGY. ABDOMEN/PELVIS: LOWER THORAX: Unremarkable. HEPATOBILIARY:Multiple low-attenuation lesions scattered throughout the liver, the largest of which measures 2.4 cm in segment 8. All of the larger lesions have average internal attenuation less than 20 Hounsfield units. Smaller lesions are too small to further characterize. Gallbladder unremarkable. SPLEEN: No splenomegaly. PANCREAS: No focal masses or ductal dilatation. ADRENALS: No adrenal nodules. KIDNEYS/URETERS: 2.4 cm exophytic cyst interpolar left kidney. Additional subcentimeter hypoattenuating lesions bilaterally, too small to further characterize. Multiple bilateral renal calculi. The largest on the left measures 6 mm. The largest on the right measures 5 mm. No hydronephrosis. No ureteral or bladder calculi. Multiple pelvic phleboliths. PELVIC ORGANS/BLADDER: Urinary bladder is unremarkable. Uterus is not identified and has presumably been removed. PERITONEUM/RETROPERITONEUM: No free air or fluid. LYMPH NODES: No intra-abdominal,retroperitoneal, pelvic or inguinal lymphadenopathy. VESSELS: Limited evaluation without intravenous contrast. Atherosclerotic calcification of the abdominal aorta without aneurysmal dilatation. GI TRACT: Large bowel shows no distention or wall thickening. Gas and fecal material noted throughout. The appendix is not definitively identified. No right lower quadrant inflammation. Small bowel is nondilated. Stomach is collapsed with prominence of the rugal folds. BONES AND SOFT TISSUES: No osseous destructive lesions. No focal soft tissue abnormalities. IMPRESSION: Bilateral nonobstructing renal calculi measuring up to 6 mm on the left and 5 mm on the right. Left renal and hepatic cysts. Atherosclerotic vascular disease. Signed by: Dr. Juan Andre M.D. on 01/17/2019 5:03 PM
== END ==
LOC: CT 16:25
PROVIDERS: ATTEND Urology
DX: N20.0 Calculus of kidney (principal)
CPT/HCPCS: 74176

== ENCOUNTER → 2019-07-10 | Outpatient (CLI) | payer BC ==
--- NOTE | 2019-07-10 10:40 | Diagnostic Imaging Report ---
Abdomen, 1 view. History: Right flank pain, stones. Comparison: CT abdomen 01/17/2019. Findings: Multiple small calcifications are again seen projected over both kidneys, largest on the left measuring 6 mm. Multiple calcified phleboliths are present within the pelvis bilaterally. Air is scattered throughout nondilated small and large bowel. There are no masses. The osseous structures are intact. IMPRESSION: Multiple bilateral renal calculi, grossly similar in appearance compared to prior CT. Signed by: Joseph Villafana on 07/10/2019 10:37 AM
--- NOTE | 2019-07-10 10:52 | Diagnostic Imaging Report ---
Renal ultrasound, 07/10/2019. History: Renal stones. Comparison: X-ray from today and CT abdomen 01/17/2019. Discussion: Transverse and longitudinal images of the kidneys were obtained demonstrating normal renal sizes and echogenicities. An oval anechoic structure is present in the upper pole of the left kidney measuring 2.6 x 2.3 x 3.1 cm. There is no evidence of hydronephrosis or mass. Scattered subcentimeter nonshadowing echogenic foci are present within both kidneys, difficult to reliably identify. The right kidney measures 11 cm and the left kidney measures 11.9 cm in length. The urinary bladder is unremarkable. Bilateral ureteral jets are identified. There is no evidence of free fluid. IMPRESSION: 1. Simple left renal cyst. 2. Nonobstructing bilateral renal calculi. Signed by: Joseph Villafana on 07/10/2019 10:49 AM
== END ==
LOC: US 08:38
PROVIDERS: ATTEND Urology
DX: N20.0 Calculus of kidney (principal)
CPT/HCPCS: 74018; 76770

== ENCOUNTER 2019-08-03 10:48 | Emergency (ER) | payer BC ==
[~2019-08-03] VITALS: Ht 165.1 cm; Wt 74.4 kg
[2019-08-03] MEDS ORDERED: SODIUM CHLORIDE 0.9% 1000ML 1,000 ML IV STA (10:55)
[2019-08-03] MEDS ORDERED: KETOROLAC TROMETHAMINE 30 MG/ML VIAL IV NR (11:00)
[2019-08-03] MEDS ORDERED: ONDANSETRON HCL INJ 2MG/ML 2ML 2 MG/ML VIAL IV NR (11:30)
--- NOTE | 2019-08-03 11:31 | NUR ---
straight cath inserted for ua via aseptic technique per md orders; urine output approx 40 cc; ua collected and sent to lab
[2019-08-03 11:48] LABS: BASOPHILS # (AUTO) 0.1 (0.0-0.1); BASOPHILS % 0.4 % (0.0-1.0); EOSINOPHILS # (AUTO) 0.2 (0.0-0.4); EOSINOPHILS % 1.3 % (0.0-6.0); HEMATOCRIT 44.7 % (34.2-44.1); HEMOGLOBIN 14.7 g/dL (12.0-16.0); LYMPHOCYTES # (AUTO) 3.1 (1.0-3.2); LYMPHOCYTES % 26.5 % (18.0-39.1); MEAN CORPUSCULAR HEMOGLOBIN 31.3 pg (28-32); MEAN CORPUSCULAR HGB CONC 32.9 g/dL (31-35); MEAN CORPUSCULAR VOLUME 95.1 fL (81-99); MONOCYTES # (AUTO) 0.7 (0.2-0.8); MONOCYTES % 5.7 % (4.4-11.3); NEUTROPHILS # (AUTO) 7.7 (2.1-6.9); NEUTROPHILS % 65.8 % (38.7-80.0); PLATELET COUNT 259 x10e3/uL (140-360); RED CELL DISTRIBUTION WIDTH 14.2 % (11.7-14.4)
[2019-08-03 11:49] LABS: BILIRUBIN,URINE NEGATIVE (NEGATIVE); CLARITY,URINE CLEAR (CLEAR); COLOR,URINE YELLOW (YELLOW); KETONES,URINE NEGATIVE (NEGATIVE); LEUKOCYTE ESTERASE ,URINE TRACE (NEGATIVE); NITRITE,URINE NEGATIVE (NEGATIVE); PROTEIN,URINE DIPSTICK NEGATIVE (NEGATIVE); URINE UROBILINOGEN 0.2 mg/dL (0.2 - 1)
[2019-08-03 11:58] LABS: BACTERIA,URINE RARE /HPF; EPITHELIAL CELLS,URINE FEW /LPF; RBC,URINE 0-5 /HPF (0-5); WBC,URINE (MAN) 0-5 /HPF (0-5)
[2019-08-03 12:09] LABS: ALANINE AMINOTRANSFERASE 16 IU/L (0-55); ALBUMIN 3.8 g/dL (3.5-5.0); ALBUMIN/GLOBULIN RATIO 1.2 (0.8-2.0); ALKALINE PHOSPHATASE 72 IU/L (40-150); ANION GAP 11.4 mmol/L (8-16); BLOOD UREA NITROGEN 7 mg/dL (7-26); BUN/CREATININE RATIO 8 (6-25); CALCIUM 9.3 mg/dL (8.4-10.2); CARBON DIOXIDE 28 mmol/L (22-29); CHLORIDE 101 mmol/L (98-107); CREATININE, SERUM 0.84 mg/dL (0.57-1.11); EST GLOMERULAR FILTRATION RATE > 60 ML/MIN (60-); GLUCOSE 93 mg/dL (74-118); POTASSIUM 3.4 mmol/L (3.5-5.1); SODIUM 137 mmol/L (136-145)
--- NOTE | 2019-08-03 14:21 | Diagnostic Imaging Report ---
EXAM: CT Abdomen and Pelvis WITHOUT intravenous contrast INDICATION: Left abdominal/flank pain COMPARISON: CT abdomen and pelvis of 01/17/2019 TECHNIQUE: Abdomen and pelvis were scanned utilizing a multidetector helical scanner from the lung base to the pubic symphysis without administration of IV contrast. Coronal and sagittal reformations were obtained. IV CONTRAST: None ORAL CONTRAST: Water COMPLICATIONS: None RADIATION DOSE: Total DLP: 315.5 mGy*cm Dose modulation, iterative reconstruction, and/or weight based adjustment of the mA/kV was utilized to reduce the radiation dose to as low as reasonably achievable. FINDINGS: LOWER THORAX: Bibasilar dependent subsegmental atelectasis. No focal consolidation. HEPATOBILIARY: Multiple hepatic cysts, essentially unchanged from the CT of 01/17/2019. No new focal liver lesions. Normal gallbladder. SPLEEN: No splenomegaly. PANCREAS: No focal masses or ductal dilatation. ADRENALS: No adrenal nodules. KIDNEYS/URETERS: Redemonstration of bilateral nonobstructing renal calculi, the largest of which measure up to 8 mm on the left and 6 mm on the right. No hydronephrosis or hydroureter. Unchanged 2.4 cm left exophytic renal cyst. PELVIC ORGANS/BLADDER: Unremarkable. PERITONEUM / RETROPERITONEUM: No free air or fluid. LYMPH NODES: No lymphadenopathy. VESSELS: Atherosclerotic calcifications of the nonaneurysmal abdominal aorta and major branches. GI TRACT: No abnormal bowel wall thickening. No bowel obstruction. BONES AND SOFT TISSUES: No acute osseous injury. No suspicious lytic or blastic lesions. IMPRESSION: Redemonstration of bilateral nonobstructing renal calculi measuring up to 8 mm on the left and 6 mm on the right. No hydronephrosis or hydroureter. Signed by: Odilon Alford MD on 08/03/2019 1:34 PM
[2019-08-03 14:42] VITALS: BP 113/80
== END 2019-08-03 14:51 | disposition home or self-care (01) ==
LOC: ER 10:48
DX: M54.5 Low back pain (principal); R10.9 Unspecified abdominal pain; R11.0 Nausea; E06.3 Autoimmune thyroiditis; E28.2 Polycystic ovarian syndrome
CPT/HCPCS: 36415; 74176; 80053; 81001; 85025; 87086; 99284; J1885; J2405; J7030

== ENCOUNTER → 2019-09-01 | Day surgery (SDC) | payer BC ==
--- NOTE | 2019-08-31 11:40 | Diagnostic Imaging Report ---
Abdomen, 1 view. History: Preop, urologic procedure. Comparison: 07/10/2019. Findings: Air is scattered throughout nondilated small and large bowel. Multiple calcifications are projected over the kidneys bilaterally, measuring up to 5 mm on the right and 7 cm on the left. Calcified phleboliths are present within the pelvis. The osseous structures are intact. IMPRESSION: Non-specific bowel gas pattern. Bilateral renal calculi without significant change. Signed by: Joseph Villafana on 08/31/2019 11:36 AM
--- NOTE | 2019-08-31 11:41 | Diagnostic Imaging Report ---
Chest, 2 views, 08/31/2019. History: Preop, urologic procedure. Comparison: None available. Findings: The cardiomediastinal silhouette and pulmonary vasculature are within normal limits. The lungs are clear without evidence of consolidation or pleural effusion. Azygos fissure is noted. There are no acute osseous or soft tissue abnormalities. Impression: No acute cardiopulmonary abnormality. Signed by: Joseph Villafana on 08/31/2019 11:37 AM
[2019-08-31 11:49] LABS: BASOPHILS # (AUTO) 0.1 (0.0-0.1); BASOPHILS % 0.7 % (0.0-1.0); EOSINOPHILS # (AUTO) 0.2 (0.0-0.4); EOSINOPHILS % 1.7 % (0.0-6.0); HEMATOCRIT 45.8 % (34.2-44.1); HEMOGLOBIN 15.1 g/dL (12.0-16.0); LYMPHOCYTES # (AUTO) 3.1 (1.0-3.2); LYMPHOCYTES % 30.8 % (18.0-39.1); MEAN CORPUSCULAR HEMOGLOBIN 31.3 pg (28-32); MONOCYTES # (AUTO) 0.7 (0.2-0.8); MONOCYTES % 6.6 % (4.4-11.3); NEUTROPHILS # (AUTO) 6.1 (2.1-6.9); PLATELET COUNT 250 x10e3/uL (140-360); RED BLOOD COUNT 4.82 x10e6/uL (3.6-5.1); RED CELL DISTRIBUTION WIDTH 13.5 % (11.7-14.4)
[2019-08-31 12:16] LABS: ALANINE AMINOTRANSFERASE 15 IU/L (0-55); ALBUMIN 3.9 g/dL (3.5-5.0); ALBUMIN/GLOBULIN RATIO 1.2 (0.8-2.0); ALKALINE PHOSPHATASE 69 IU/L (40-150); ANION GAP 10.3 mmol/L (8-16); BLOOD UREA NITROGEN 10 mg/dL (7-26); BUN/CREATININE RATIO 12 (6-25); CALCIUM 9.4 mg/dL (8.4-10.2); CARBON DIOXIDE 27 mmol/L (22-29); CHLORIDE 103 mmol/L (98-107); CREATININE, SERUM 0.84 mg/dL (0.57-1.11); EST GLOMERULAR FILTRATION RATE > 60 ML/MIN (60-); GLUCOSE 87 mg/dL (74-118); POTASSIUM 4.3 mmol/L (3.5-5.1); SODIUM 136 mmol/L (136-145)
[~2019-09-01] MED LIST changes: +B&O 60MG R/S 60 MG SUPP PR ONE; +CEFTRIAXONE SOD 1 GM/NS 50 ML 50 ML IV ONE; +DEXAMETHASONE SOD PHOS INJ 4 MG/ML VIAL ONE; +FENTANYL CITRATE/PF 100MCG/2 ML INJ ONE; +FOLIC ACID1 MG PO; +IOPAMIDOL 300MG/ML 50ML INFUS..BTL IV ONE; +LEVOTHYROXINE PO; +LIDOCAINE HCL 2% LOCAL INJ 5 ML SDV VIAL INJ ONE; +MAGNESIUM OXID400 MG PO; +MIDAZOLAM HCL 2 MG/2 ML VIAL ONE; +ONDANSETRON HCL INJ 2MG/ML 2ML 2 MG/ML VIAL ONE; +PROPOFOL IV EMULSION 10 MG/ML 20 ML VIAL ONE; +SEVOFLURANE INHAL SOLN 250 ML PEN BTL ONE; +SYNTHROID100 MCG PO; +VIT B12 INJ; +VIT B12 PO; +VIT D3 PO; +VITAMIN B-121000 MC2 SL
[2019-09-01 14:20] VITALS: BP 134/81
--- NOTE | 2019-11-06 00:59 | Operative Report ---
DATE OF PROCEDURE: 09/01/2019 SURGEON: Jose Pardo MD POSTOPERATIVE DIAGNOSES: 1. Left nephrolithiasis. 2. Urinary tract infections. POSTOPERATIVE DIAGNOSES: 1. Left nephrolithiasis. 2. Urinary tract infections. 3. Grade 1 cystocele. 4. Atrophic (senile) vaginitis. OPERATIONS PERFORMED: Note these were all staged procedures as part of multi-staged and multi-step process in managing the patient's urolithiasis. 1. Left-sided extracorporeal shockwave lithotripsy (separate procedure performed for the nephrolithiasis). 2. Cystourethroscopy with bilateral ureteral catheterization and retrograde ureteropyelography (separate procedure performed for the urinary tract infection). 3. Interpretation of retrograde ureteropyelography. 4. Supervision of fluoroscopy, no radiologist present. 5. Pelvic examination under anesthesia. ANESTHESIA: General. COMPLICATIONS: None. CLINICAL SUMMARY: Ember Braun is a 53-year-old woman with bilateral nephrolithiasis. She has had a previous excision of a vaginal sling. She is brought for the above procedure. She is aware of the risks of bleeding, infection, injury to adjacent structures, need for additional procedures and elected to proceed. OPERATIVE PROCEDURE IN DETAIL: Informed consent was verified. Ember Braun was properly identified, taken to the operating room, placed on the lithotripsy table in supine position. Anesthesia was uneventfully begun. The patient's left nephrolithiasis was localized with biplanar fluoroscopy. A total of 3000 shocks were delivered to the 8 as well as 5 mm stones in the left upper kidney. Fragmentation was noted. The patient was then carefully and gently repositioned in dorsal lithotomy position with all pressure points well padded. Her genitalia were prepared and draped in usual sterile fashion. The cystoscope sheath with obturator in place was atraumatically inserted in the patient's urethra and bladder was drained. Panendoscopy revealed no suspicious mucosal lesions, no tumors, no stones, and no diverticula. Normally positioned and configured ureteral orifices were identified. An 8-Kazakh catheter was used to cannulate each ureter and retrograde ureteropyelography pyelogram was performed. Interpretation of retrograde ureteropyelography: Contrast was instilled in retrograde fashion bilaterally. There were filling defects in the left upper kidney corresponding to the known stones as well as blood clots from the stone management with lithotripsy. We identified stone in the right side as well. Bilaterally, there was no hydronephrosis. Unobstructed drainage was observed fluoroscopically. The patient's bladder was drained. Cystoscope was withdrawn. Pelvic examination under anesthesia revealed no evidence of side effects or problems from the sling excision. There was a grade 1 cystocele. There was atrophic vaginitis. No abnormal palpable pelvic masses could be appreciated. There were no obvious mucosal lesions. The patient was then uneventfully reversed from anesthesia and taken to recovery room in stable condition. There were no complications to the procedure. The patient tolerated the procedure well. Plans will be to return the patient to the operating room for right, and if any residual stone present, possibly left ESWL. Jose Pardo MD [place]/MODL /[id number] cc: Lupillo Ramirez MD
== END | disposition home or self-care (01) ==
LOC: OR 09:35
PROVIDERS: ATTEND Urology
DX: N20.0 Calculus of kidney (principal); N39.0 Urinary tract infection, site not specified; N81.10 Cystocele, unspecified; N95.2 Postmenopausal atrophic vaginitis; E06.3 Autoimmune thyroiditis; J44.9 Chronic obstructive pulmonary disease, unspecified; E03.9 Hypothyroidism, unspecified; K76.89 Other specified diseases of liver; R20.0 Anesthesia of skin; F17.210 Nicotine dependence, cigarettes, uncomplicated; Z88.6 Allergy status to analgesic agent; Z88.1 Allergy status to other antibiotic agents; Z88.8 Allergy status to other drugs, medicaments and biological substances; Z01.810 Encounter for preprocedural cardiovascular examination; Z01.812 Encounter for preprocedural laboratory examination; Z01.818 Encounter for other preprocedural examination
CPT/HCPCS: 36415; 50590; 71046; 74018; 80053; 83970; 84550; 85025; 93005; C1758; J0696; J1100; J2001; J2250; J2405; J2704; J3010; Q9967

== ENCOUNTER → 2019-11-10 | Day surgery (SDC) | payer BC ==
[2019-11-09 14:49] LABS: BASOPHILS # (AUTO) 0.1 (0.0-0.1); BASOPHILS % 0.8 % (0.0-1.0); EOSINOPHILS # (AUTO) 0.2 (0.0-0.4); EOSINOPHILS % 2.2 % (0.0-6.0); HEMATOCRIT 44.6 % (34.2-44.1); LYMPHOCYTES # (AUTO) 3.2 (1.0-3.2); LYMPHOCYTES % 34.7 % (18.0-39.1); MEAN CORPUSCULAR HEMOGLOBIN 31.7 pg (28-32); MEAN CORPUSCULAR HGB CONC 33.6 g/dL (31-35); MEAN CORPUSCULAR VOLUME 94.3 fL (81-99); MONOCYTES # (AUTO) 0.7 (0.2-0.8); MONOCYTES % 7.7 % (4.4-11.3); NEUTROPHILS % 54.5 % (38.7-80.0); PLATELET COUNT 267 x10e3/uL (140-360); RED BLOOD COUNT 4.73 x10e6/uL (3.6-5.1); RED CELL DISTRIBUTION WIDTH 13.8 % (11.7-14.4)
--- NOTE | 2019-11-09 15:19 | Diagnostic Imaging Report ---
Exam: KUB - 2 views Indication: Renal calculi, preoperative Comparison: KUB of 10/13/2019 Findings: Unchanged right and left renal calculi measure up to 5 mm on the left and 4 mm on the right. Nonobstructive bowel gas pattern. No free air. No acute osseous injury. Phleboliths in the pelvis. Impression: Unchanged bilateral renal calculi. Signed by: Odilon Alford MD on 11/09/2019 3:15 PM
[~2019-11-10] MED LIST changes: -B&O 60MG R/S 60 MG SUPP PR ONE; -IOPAMIDOL 300MG/ML 50ML INFUS..BTL IV ONE; +MORPHINE SULFATE INJ 4 MG/ML INJ 1ML ONE
[2019-11-10 09:13] VITALS: BP 145/83
--- NOTE | 2019-12-27 03:16 | Operative Report ---
DATE OF PROCEDURE: 11/10/2019 SURGEON: Jose Pardo MD PREOPERATIVE DIAGNOSIS: Right nephrolithiasis. POSTOPERATIVE DIAGNOSIS: Right nephrolithiasis. OPERATION PERFORMED: 1. Staged right-sided extracorporeal shockwave lithotripsy. 2. Supervision of fluoroscopy, no radiologist present. ANESTHESIA: General. COMPLICATIONS: None. CLINICAL SUMMARY: Ember Braun is a 54-year-old woman with urolithiasis. She is brought for the staged procedure with hopes of ridding her urolithiasis. She is aware of the risks of bleeding, infection, injury to adjacent structures, need for additional procedures and elected to proceed. OPERATIVE PROCEDURE IN DETAIL: After informed consent was verified. Ember Braun was properly identified, taken to the operating room, placed on the lithotripsy table in supine position. Anesthesia was uneventfully begun. The patient's 5 mm upper calyceal stone and 5 mm lower calyceal stones were localized with biplanar fluoroscopy. A total of 3000 shocks were delivered with excellent fragmentation noted. The patient was then uneventfully reversed from anesthesia and taken to the recovery room in stable condition. There were no complications to the procedure and she tolerated the procedure well. Explicit postop instructions were given. We will follow the patient up in the office. Jose Pardo MD [place]/MODL /[id number] cc: MD Jose Nunez MD
== END | disposition home or self-care (01) ==
LOC: OR 05:22
PROVIDERS: ATTEND Urology
DX: N20.0 Calculus of kidney (principal); Z01.812 Encounter for preprocedural laboratory examination; E03.9 Hypothyroidism, unspecified; Z87.442 Personal history of urinary calculi; Z87.440 Personal history of urinary (tract) infections; J44.9 Chronic obstructive pulmonary disease, unspecified; F41.9 Anxiety disorder, unspecified; F17.200 Nicotine dependence, unspecified, uncomplicated; K21.9 Gastro-esophageal reflux disease without esophagitis; Z88.5 Allergy status to narcotic agent; Z88.8 Allergy status to other drugs, medicaments and biological substances
CPT/HCPCS: 36415; 50590; 74018; 85025; J0696; J1100; J2001; J2250; J2270; J2405; J2704; J3010

== ENCOUNTER → 2024-06-21 | Day surgery (SDC) | payer BC ==
[2024-06-16 15:30] LABS: BASOPHILS # (AUTO) 0.1 (0.0-0.1); BASOPHILS % 0.8 % (0.0-1.0); EOSINOPHILS # (AUTO) 0.3 (0.0-0.4); EOSINOPHILS % 2.7 % (0.0-6.0); HEMATOCRIT 48.8 % (34.2-44.1); HEMOGLOBIN 16.1 g/dL (12.0-16.0); LYMPHOCYTES % 30.5 % (18.0-39.1); MONOCYTES # (AUTO) 0.7 (0.2-0.8); MONOCYTES % 7.4 % (4.4-11.3); NEUTROPHILS # (AUTO) 5.7 (2.1-6.9); NEUTROPHILS % 58.5 % (38.7-80.0); PLATELET COUNT 334 x10e3/uL (140-360); RED BLOOD COUNT 5.19 x10e6/uL (3.6-5.1); RED CELL DISTRIBUTION WIDTH 13.2 % (11.7-14.4); WHITE BLOOD COUNT 9.73 x10e3/uL (4.8-10.8)
[2024-06-16 16:03] LABS: ANION GAP 16.6 mmol/L (8-16); CALCIUM 9.4 mg/dL (8.4-10.2); CREATININE, SERUM 1.09 mg/dL (0.57-1.11); POTASSIUM 3.6 mmol/L (3.5-5.1)
[2024-06-17 05:14] LABS: CALCIUM 9.6 mg/dL (8.7-10.2)
[~2024-06-21] MED LIST changes: +CEFDINIR300 MG PO; -CEFTRIAXONE SOD 1 GM/NS 50 ML 50 ML IV ONE; +DEXAMETHASONE SOD PHOS INJ 4 MG/ML SDV ONE; -DEXAMETHASONE SOD PHOS INJ 4 MG/ML VIAL ONE; +ESTRACE42.5 GM TOP; +ESTRADIOL1 MG TOP; +FLUCONAZOLE100 MG PO; +IOPAMIDOL 610MG/1ML 300 MG/ML VIAL IV ONE; +KETOROLAC TROMETHAMINE 30 MG/ML VIAL ONE; +MAGNESIUM400 MG PO; -MIDAZOLAM HCL 2 MG/2 ML VIAL ONE; -MORPHINE SULFATE INJ 4 MG/ML INJ 1ML ONE; +TIROSINT200 MCG PO; +VESICARE5 MG PO; +VITAMIN D3125 MCG; +VITAMIN D3125 MCG/1 PO
[2024-06-21] MEDS: LACTATED RINGER'S 1,000 ML ONE (06:07)
[2024-06-21] MEDS: GENTAMICIN 80MG/NS 100 ML 200 ML IV ONE (06:08)
[2024-06-21] MEDS: CEFTRIAXONE 1 GM VIAL ONE (06:08)
[2024-06-21 09:38] VITALS: TEMP 97.8
[2024-06-21] MEDS: MEPERIDINE HCL INJ 25 MG/ML VIAL ONE (09:58)
[2024-06-21] MEDS: ONDANSETRON HCL INJ 2MG/ML 2ML 2 MG/ML VIAL ONE (10:03)
[2024-06-21] MEDS: FENTANYL CITRATE/PF 100MCG/2 ML INJ ONE (10:08)
[2024-06-21] MEDS: HYDROMORPHONE 1MG/1ML INJ ONE (10:30)
[2024-06-21] MEDS: PHENAZOPYRIDINE HCL 100 MG TAB ONE (10:33)
[2024-06-21 11:00] VITALS: BP 130/71; PULSE 74; RESP 18; O2SAT 99
== END | disposition home or self-care (01) ==
LOC: OR 06:13
PROVIDERS: ATTEND Urology
DX: N20.0 Calculus of kidney (principal); Z46.6 Encounter for fitting and adjustment of urinary device; N81.10 Cystocele, unspecified; N81.6 Rectocele; N39.46 Mixed incontinence; N95.2 Postmenopausal atrophic vaginitis; N81.89 Other female genital prolapse; N32.81 Overactive bladder; N28.1 Cyst of kidney, acquired; N39.0 Urinary tract infection, site not specified; E78.5 Hyperlipidemia, unspecified; J44.9 Chronic obstructive pulmonary disease, unspecified; E03.9 Hypothyroidism, unspecified; K58.9 Irritable bowel syndrome, unspecified; F17.290 Nicotine dependence, other tobacco product, uncomplicated; Z88.6 Allergy status to analgesic agent; Z88.1 Allergy status to other antibiotic agents; Z88.8 Allergy status to other drugs, medicaments and biological substances; Z01.810 Encounter for preprocedural cardiovascular examination; Z01.812 Encounter for preprocedural laboratory examination; Z79.899 Other long term (current) drug therapy; Z80.52 Family history of malignant neoplasm of bladder; Z84.1 Family history of disorders of kidney and ureter
CPT/HCPCS: 36415; 52332; 52352; 74420; 80048; 83970; 84550; 85025; 87086; 88300; 93005; C1758; C1766; C2617; J0696; J1100; J1170; J1580; J1885; J2001; J2175; J2405; J2704; J3010; J7121; Q9967

== ENCOUNTER → 2024-07-19 | Day surgery (SDC) | payer BC ==
[2024-07-18 11:00] LABS: BASOPHILS # (AUTO) 0.1 (0.0-0.1); BASOPHILS % 0.6 % (0.0-1.0); EOSINOPHILS # (AUTO) 0.3 (0.0-0.4); EOSINOPHILS % 2.7 % (0.0-6.0); HEMATOCRIT 46.8 % (34.2-44.1); HEMOGLOBIN 15.3 g/dL (12.0-16.0); LYMPHOCYTES # (AUTO) 2.5 (1.0-3.2); LYMPHOCYTES % 25.7 % (18.0-39.1); MEAN CORPUSCULAR HEMOGLOBIN 30.8 pg (28-32); MEAN CORPUSCULAR HGB CONC 32.7 g/dL (31-35); MEAN CORPUSCULAR VOLUME 94.2 fL (81-99); MONOCYTES # (AUTO) 0.7 (0.2-0.8); MONOCYTES % 7.1 % (4.4-11.3); NEUTROPHILS # (AUTO) 6.2 (2.1-6.9); NEUTROPHILS % 63.7 % (38.7-80.0); PLATELET COUNT 303 x10e3/uL (140-360); RED BLOOD COUNT 4.97 x10e6/uL (3.6-5.1); RED CELL DISTRIBUTION WIDTH 13.6 % (11.7-14.4); WHITE BLOOD COUNT 9.71 x10e3/uL (4.8-10.8)
[2024-07-18 12:34] LABS: ANION GAP 14.9 mmol/L (8-16); CALCIUM 9.1 mg/dL (8.4-10.2); CREATININE, SERUM 0.86 mg/dL (0.57-1.11); POTASSIUM 3.9 mmol/L (3.5-5.1)
[~2024-07-19] MED LIST changes: +ACETAMINOPHEN 1000 MG/100 ML IV ONE; -KETOROLAC TROMETHAMINE 30 MG/ML VIAL ONE; +PHENYLEPHRINE HCL 1% 10 MG/ML VIAL ONE
[2024-07-19] MEDS: LACTATED RINGER'S 1,000 ML ONE (06:12)
[2024-07-19] MEDS: CEFTRIAXONE 1 GM VIAL ONE (06:13)
[2024-07-19] MEDS: GENTAMICIN 80MG/NS 100 ML 200 ML IV ONE (06:13)
[2024-07-19] MEDS: PHENAZOPYRIDINE HCL 100 MG TAB ONE (10:10)
[2024-07-19] MEDS: KETOROLAC TROMETHAMINE 30 MG/ML VIAL ONE (10:10)
[2024-07-19] MEDS: MEPERIDINE HCL INJ 25 MG/ML VIAL ONE (10:20)
[2024-07-19 10:50] VITALS: BP 135/89; PULSE 86; RESP 16; O2SAT 96
== END | disposition home or self-care (01) ==
LOC: OR 05:56
PROVIDERS: ATTEND Urology
DX: N20.0 Calculus of kidney (principal); Z46.6 Encounter for fitting and adjustment of urinary device; N81.10 Cystocele, unspecified; N81.6 Rectocele; N95.2 Postmenopausal atrophic vaginitis; N28.89 Other specified disorders of kidney and ureter; J44.9 Chronic obstructive pulmonary disease, unspecified; E03.9 Hypothyroidism, unspecified; Z88.6 Allergy status to analgesic agent; Z88.1 Allergy status to other antibiotic agents; Z88.8 Allergy status to other drugs, medicaments and biological substances; Z01.812 Encounter for preprocedural laboratory examination; Z01.818 Encounter for other preprocedural examination; Z79.899 Other long term (current) drug therapy; Z87.891 Personal history of nicotine dependence
CPT/HCPCS: 36415; 52352; 74018; 74420; 80048; 84550; 85025; 87086; 88300; C1766; C1769; J0131; J0696; J1100; J1580; J1885; J2001; J2175; J2371; J2405; J2704; J3010; J7121; Q9967

== ENCOUNTER → 2025-01-04 | Outpatient (REF) | payer BC ==
[~2025-01-04] MED LIST changes: +ABX PO; -ACETAMINOPHEN 1000 MG/100 ML IV ONE; +CEFTIN PO; -DEXAMETHASONE SOD PHOS INJ 4 MG/ML SDV ONE; +ESTRADIOL PATCH TD; -FENTANYL CITRATE/PF 100MCG/2 ML INJ ONE; -IOPAMIDOL 610MG/1ML 300 MG/ML VIAL IV ONE; +LEVOTHYROXINE50 MCG PO; -LIDOCAINE HCL 2% LOCAL INJ 5 ML SDV VIAL INJ ONE; -ONDANSETRON HCL INJ 2MG/ML 2ML 2 MG/ML VIAL ONE; -PHENYLEPHRINE HCL 1% 10 MG/ML VIAL ONE; -PROPOFOL IV EMULSION 10 MG/ML 20 ML VIAL ONE; -SEVOFLURANE INHAL SOLN 250 ML PEN BTL ONE; +ULTRAM50 MG PO; +VIT D PO
== END ==
LOC: CT 13:36
PROVIDERS: ATTEND Urology
DX: N20.0 Calculus of kidney (principal)
CPT/HCPCS: 74176

== ENCOUNTER → 2025-02-16 | Day surgery (SDC) | payer BC ==
[2025-02-15 13:27] LABS: BASOPHILS # (AUTO) 0.1 (0.0-0.1); BASOPHILS % 0.8 % (0.0-1.0); EOSINOPHILS # (AUTO) 0.2 (0.0-0.4); EOSINOPHILS % 1.9 % (0.0-6.0); HEMATOCRIT 43.5 % (34.2-44.1); HEMOGLOBIN 14.8 g/dL (12.0-16.0); LYMPHOCYTES # (AUTO) 2.8 (1.0-3.2); LYMPHOCYTES % 31.1 % (18.0-39.1); MEAN CORPUSCULAR HEMOGLOBIN 31.3 pg (28-32); MONOCYTES # (AUTO) 0.7 (0.2-0.8); MONOCYTES % 7.3 % (4.4-11.3); NEUTROPHILS # (AUTO) 5.2 (2.1-6.9); NEUTROPHILS % 58.7 % (38.7-80.0); PLATELET COUNT 314 x10e3/uL (140-360); RED BLOOD COUNT 4.73 x10e6/uL (3.6-5.1); RED CELL DISTRIBUTION WIDTH 13.6 % (11.7-14.4); WHITE BLOOD COUNT 8.85 x10e3/uL (4.8-10.8)
[2025-02-15 13:51] LABS: ANION GAP 11.5 mmol/L (8-16); CALCIUM 8.7 mg/dL (8.4-10.2); CREATININE, SERUM 0.87 mg/dL (0.57-1.11); POTASSIUM 3.5 mmol/L (3.5-5.1); URIC ACID 4.6 mg/dL (2.6-8.0)
[~2025-02-16] MED LIST changes: +ACETAMINOPHEN 1000 MG/100 ML 100 ML IV ONE; +DEXAMETHASONE SOD PHOS INJ 4 MG/ML SDV ONE; +FENTANYL CITRATE/PF 100MCG/2 ML INJ ONE; +LIDOCAINE HCL 2% LOCAL INJ 5 ML SDV VIAL INJ ONE; +ONDANSETRON HCL INJ 2MG/ML 2ML 2 MG/ML VIAL ONE; +PROPOFOL IV EMULSION 10 MG/ML 20 ML VIAL ONE; +SCOPOLAMINE 1 MG PATCH ONE; +SEVOFLURANE INHAL SOLN 250 ML PEN BTL ONE; -VITAMIN D3125 MCG; +VITAMIN D3125 MCG PO
[2025-02-16] MEDS: SODIUM CHLORIDE 0.9% 1000ML 1,000 ML ONE (08:18)
[2025-02-16] MEDS: CEFTRIAXONE 1 GM VIAL ONE (08:19)
[2025-02-16 11:01] VITALS: TEMP 97.7
[2025-02-16] MEDS: PHENAZOPYRIDINE HCL 100 MG TAB ONE (11:27)
[2025-02-16 12:10] VITALS: BP 149/84; PULSE 63; RESP 18; O2SAT 99
== END | disposition home or self-care (01) ==
LOC: OR 07:53
PROVIDERS: ATTEND Urology
DX: N20.0 Calculus of kidney (principal); N39.0 Urinary tract infection, site not specified; N81.10 Cystocele, unspecified; N81.6 Rectocele; N95.2 Postmenopausal atrophic vaginitis; N32.89 Other specified disorders of bladder; J44.9 Chronic obstructive pulmonary disease, unspecified; E78.5 Hyperlipidemia, unspecified; E03.9 Hypothyroidism, unspecified; K29.70 Gastritis, unspecified, without bleeding; N28.1 Cyst of kidney, acquired; K76.89 Other specified diseases of liver; K86.2 Cyst of pancreas; J98.4 Other disorders of lung; M19.90 Unspecified osteoarthritis, unspecified site; M06.9 Rheumatoid arthritis, unspecified; F41.9 Anxiety disorder, unspecified; Z88.6 Allergy status to analgesic agent; Z88.8 Allergy status to other drugs, medicaments and biological substances; Z88.1 Allergy status to other antibiotic agents; Z01.810 Encounter for preprocedural cardiovascular examination; Z01.812 Encounter for preprocedural laboratory examination; Z01.818 Encounter for other preprocedural examination; Z79.899 Other long term (current) drug therapy; Z87.891 Personal history of nicotine dependence
CPT/HCPCS: 36415; 50590; 52332; 71046; 74018; 80048; 83970; 84550; 85025; 87086; 87186; 93005; C1758; C1769; C2617; J0131; J0696; J1100; J2003; J2405; J2704; J3010; J7030

== ENCOUNTER → 2025-04-11 | Day surgery (SDC) | payer BC ==
[2025-04-06 13:30] LABS: BASOPHILS # (AUTO) 0.1 (0.0-0.1); BASOPHILS % 0.8 % (0.0-1.0); EOSINOPHILS # (AUTO) 0.2 (0.0-0.4); EOSINOPHILS % 2.1 % (0.0-6.0); HEMATOCRIT 43.7 % (34.2-44.1); HEMOGLOBIN 14.5 g/dL (12.0-16.0); LYMPHOCYTES % 34.3 % (18.0-39.1); MEAN CORPUSCULAR HEMOGLOBIN 30.9 pg (28-32); MEAN CORPUSCULAR HGB CONC 33.2 g/dL (31-35); MONOCYTES # (AUTO) 0.6 (0.2-0.8); MONOCYTES % 7.5 % (4.4-11.3); NEUTROPHILS # (AUTO) 4.7 (2.1-6.9); NEUTROPHILS % 55.2 % (38.7-80.0); PLATELET COUNT 318 x10e3/uL (140-360); RED CELL DISTRIBUTION WIDTH 13.4 % (11.7-14.4); WHITE BLOOD COUNT 8.59 x10e3/uL (4.8-10.8)
[2025-04-06 14:05] LABS: ANION GAP 14.9 mmol/L (8-16); CALCIUM 9.3 mg/dL (8.4-10.2); CREATININE, SERUM 0.95 mg/dL (0.57-1.11); POTASSIUM 3.9 mmol/L (3.5-5.1); URIC ACID 5.1 mg/dL (2.6-8.0)
[~2025-04-11] MED LIST changes: -FENTANYL CITRATE/PF 100MCG/2 ML INJ ONE; +LIOTHYRONINE SO5 MCG PO; -SCOPOLAMINE 1 MG PATCH ONE
[2025-04-11] MEDS: SODIUM CHLORIDE 0.9% 1000ML 1,000 ML ONE (12:22)
[2025-04-11] MEDS: Vancomycin IV 1 GM VIAL ONE (12:23)
[2025-04-11] MEDS: SODIUM CHLORIDE 0.9% 250ML 250 ML ONE (12:24)
[2025-04-11] MEDS: CEFEPIME HCL 1 GM VIAL ONE (12:24)
[2025-04-11 14:06] VITALS: TEMP 97.8
[2025-04-11] MEDS: MEPERIDINE HCL INJ 25 MG/ML VIAL ONE (14:30)
[2025-04-11] MEDS: PHENAZOPYRIDINE HCL 100 MG TAB ONE (14:35)
[2025-04-11 15:20] VITALS: BP 142/82; RESP 18; O2SAT 99
== END | disposition home or self-care (01) ==
LOC: OR 11:35
PROVIDERS: ATTEND Urology
DX: N20.0 Calculus of kidney (principal); Z46.6 Encounter for fitting and adjustment of urinary device; N28.89 Other specified disorders of kidney and ureter; N39.0 Urinary tract infection, site not specified; N28.1 Cyst of kidney, acquired; N81.10 Cystocele, unspecified; N81.6 Rectocele; N95.2 Postmenopausal atrophic vaginitis; N39.46 Mixed incontinence; N81.89 Other female genital prolapse; J44.9 Chronic obstructive pulmonary disease, unspecified; E78.5 Hyperlipidemia, unspecified; M06.9 Rheumatoid arthritis, unspecified; M19.90 Unspecified osteoarthritis, unspecified site; G89.29 Other chronic pain; E03.9 Hypothyroidism, unspecified; K29.70 Gastritis, unspecified, without bleeding; F41.9 Anxiety disorder, unspecified; Z88.6 Allergy status to analgesic agent; Z88.1 Allergy status to other antibiotic agents; Z88.8 Allergy status to other drugs, medicaments and biological substances; Z01.812 Encounter for preprocedural laboratory examination; Z01.818 Encounter for other preprocedural examination; Z79.899 Other long term (current) drug therapy; Z87.891 Personal history of nicotine dependence; Z80.52 Family history of malignant neoplasm of bladder; Z84.1 Family history of disorders of kidney and ureter
CPT/HCPCS: 36415; 52352; 74018; 74420; 80048; 84550; 85025; 87086; 87186; 88300; C1758; C1769; J0131; J0692; J1100; J2003; J2175; J2405; J2704; J3370; J7030; J7050

== ENCOUNTER → 2025-08-09 | Outpatient (REF) | payer BC ==
[~2025-08-09] MED LIST changes: -ACETAMINOPHEN 1000 MG/100 ML 100 ML IV ONE; -DEXAMETHASONE SOD PHOS INJ 4 MG/ML SDV ONE; -LIDOCAINE HCL 2% LOCAL INJ 5 ML SDV VIAL INJ ONE; -ONDANSETRON HCL INJ 2MG/ML 2ML 2 MG/ML VIAL ONE; -PROPOFOL IV EMULSION 10 MG/ML 20 ML VIAL ONE; -SEVOFLURANE INHAL SOLN 250 ML PEN BTL ONE
== END ==
LOC: RAD 11:45
PROVIDERS: ATTEND Urology
DX: N20.0 Calculus of kidney (principal); Z87.442 Personal history of urinary calculi
CPT/HCPCS: 74018